=== PATIENT | male | born 1970 | race Caucasian/White ===

== ENCOUNTER 2017-04-01 17:44 | Emergency (ER) | payer OTHER ==
[2017-04-01 18:08] VITALS: BP 145/90; PULSE 78; RESP 16; TEMP 98
[2017-04-01] MEDS ORDERED: LORazepam 1 MG TAB PO STA (18:28)
[2017-04-01] MEDS ORDERED: diphenhydrAMINE 50 MG CAP PO STA (18:28)
--- NOTE | 2017-04-01 18:30 | ED ---
Skin/Abscess/FB HPI - General Chief complaint: Skin/Abscess/Foreign Body Stated complaint: Rash Time Seen by Provider: 04/01/17 18:11 Source: patient, RN notes reviewed, old records reviewed Mode of arrival: ambulatory Limitations: no limitations - History of Present Illness Initial comments: Patient is a 46-year-old male presents and she complained of a periodic rash over his body. He asked you days. Patient states that he thinks it's related to Vistaril. He reports he's extremely anxious and medication. Patient reports that it was his rash becomes worse when he's anxious. He says that nobody else has this rash in his household. Patient states that he has no new exposures that you can think of. - Related Data Previous Rx's Medication Instructions Recorded LORazepam [Ativan] 0.5 mg PO BID #5 tab 04/01/17 diphenhydrAMINE [Benadryl] 25 mg PO QID PRN #20 capsule 04/01/17 predniSONE 10 mg PO DAILY #15 tab 04/01/17 Allergies Allergy/AdvReac Type Severity Reaction Status Date / Time No Known Allergies Allergy Verified 04/01/17 18:08 Review of Systems ROS Statement: Those systems with pertinent positive or pertinent negative responses have been documented in the HPI. ROS Other: All systems not noted in ROS Statement are negative. Past Medical History Past Medical History: No Reported History History of Any Multi-Drug Resistant Organisms: None Reported Past Surgical History: No Surgical Hx Reported Past Psychological History: Anxiety Smoking Status: Current every day smoker Past Alcohol Use History: None Reported Past Drug Use History: None Reported General Exam - General Exam Comments Initial Comments: Patient is a 46 year old male, appears very anxious. No acute distress. Limitations: no limitations General appearance: alert, in no apparent distress Head exam: Present: atraumatic, normocephalic, normal inspection Eye exam: Present: normal appearance, PERRL, EOMI. Absent: scleral icterus, conjunctival injection, periorbital swelling ENT exam: Present: normal exam, mucous membranes moist Neck exam: Present: normal inspection. Absent: tenderness, meningismus, lymphadenopathy Respiratory exam: Present: normal lung sounds bilaterally. Absent: respiratory distress, wheezes, rales, rhonchi, stridor Cardiovascular Exam: Present: regular rate, normal rhythm, normal heart sounds. Absent: systolic murmur, diastolic murmur, rubs, gallop, clicks GI/Abdominal exam: Present: soft, normal bowel sounds. Absent: distended, tenderness, guarding, rebound, rigid Back exam: Present: normal inspection Neurological exam: Present: alert, oriented X3, CN II-XII intact Psychiatric exam: Present: anxious (Fidgiting and anxious. Patient is picking at skin. ) Skin exam: Present: warm, dry, intact, normal color, rash (Urticaria over back, chest. ) Course Vital Signs 04/01/17 18:06 Temperature 98.0 F Pulse Rate 78 Respiratory 16 Rate Blood Pressure 145/90 O2 Sat by Pulse 96 Oximetry Medical Decision Making - Medical Decision Making Patient is a 46-year-old male presents and she complained of a periodic rash over his body. He asked you days. Patient states that he thinks it's related to Vistaril. He reports he's extremely anxious and medication. Patient reports that it was his rash becomes worse when he's anxious. Patient appears very anxious and fidgitng. Patient reports he picks at his skin. Patient does have urticaria over back. Patient placed on steriod, benadryl, and given 1mg ativan. Dsicussed follow up with PCP and return parameters were discussed. Disposition Clinical Impression: Anxiety Disposition: HOME SELF-CARE Condition: Good Instructions: Urticaria (ED), Generalized Anxiety Disorder (ED) Additional Instructions: Patient is a follow-up with your primary care physician. E if the medications as directed. Return to emergency department if any alarming signs or symptoms occur. Prescriptions: diphenhydrAMINE [Benadryl] 25 mg PO QID PRN #20 capsule PRN Reason: Itching LORazepam [Ativan] 0.5 mg PO BID #5 tab predniSONE 10 mg PO DAILY #15 tab Referrals: None,Stated [Primary Care Provider] - 1-2 days Time of Disposition: 18:29
== END 2017-04-01 18:50 | disposition home or self-care (01) ==
LOC: EC 17:44
DX: F41.9 Anxiety disorder, unspecified (principal); R21 Rash and other nonspecific skin eruption; F17.200 Nicotine dependence, unspecified, uncomplicated
CPT/HCPCS: 99283